=== PATIENT | male | born 1985 | race Caucasian/White ===

== ENCOUNTER 2024-06-19 15:02 | Emergency (ER) | payer BC, SELFPAY ==
[2024-06-19 15:18] VITALS: BP 144/89; PULSE 69; RESP 18; TEMP 36.6; O2SAT 98; BMI 25.1
--- NOTE | 2024-06-19 15:30 | ED.ABDPAIN ---
HPI - Abdominal Pain <Helena Lane PA-C - Last Filed: 06/19/24 20:28> General Chief Complaint: Abdominal Pain Stated Complaint: Abd px Time Seen by Provider: 06/19/24 15:29 Source: patient Mode of arrival: Ambulatory History of Present Illness HPI narrative: Mr. Holloway is a pleasant 39-year-old male with a past medical history of pyloric stenosis repair as an who presents to the emergency department for right lower quadrant abdominal pain x2 weeks. 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 Patient has had right lower quadrant abdominal pain for the last 2 weeks that is only present upon flexing his abdominal muscles such as going from a lying to sitting position. Pain is constant and 2/10 while doing this movement, there is no pain at rest. Patient was seen previously at a clinic on 06/14/2024 that did not have lab or imaging capabilities and was advised to go to the ER for CT scan. He was also evaluated by tele medicine provider on 06/15/[address] scan. Patient states this was the 1st day he was able to come to the ED. Reports that overall he feels well and is hoping it is just a pulled muscle. Normal, nonbloody bowel movements. Denies any fevers, chills, chest pain, shortness of breath, flu symptoms, dysuria, hematuria, flank pain, back pain, bulging, testicular pain, penile discharge, testicular swelling. Denies drug or tobacco use. Occasional alcohol. He has taken no medications prior to arrival. Related Data Allergies Allergy/AdvReac Type Severity Reaction Status Date / Time No Known Drug Allergies Allergy Verified 06/19/24 17:06 Review of Systems <Helena Lane PA-C - Last Filed: 06/19/24 20:28> Review of Systems ROS Unobtainable: All systems reviewed & are unremarkable except as noted in HPI and below Exam <Helena Lane PA-C - Last Filed: 06/19/24 20:28> Narrative Exam Narrative: GENERAL: 39 year old patient appears stated age. Well-developed patient, in no acute distress. HEAD: Atraumatic. Normocephalic. NECK: Trachea midline. Cervical ROM intact. CARDIOVASCULAR: Regular rate and rhythm. RESPIRATORY: ?Nonlabored respirations. ?Speaking in clear, full sentences. ?Clear to auscultation. Breath sounds equal bilaterally. No wheezes, rales, or rhonchi. ? GASTROINTESTINAL: Abdomen soft, nondistended, normal bowel sounds. Previous mid abdomen surgical scar. Mild tenderness to palpation of right lower quadrant with no rebound or guarding. EXTREMITIES: No edema or joint tenderness. BACK: Nontender without deformity or crepitance. No flank tenderness. NEURO: AOx3. ?Clear speech. ?Moves all 4 extremities appropriately. SKIN: No rash or erythema of visible areas Initial Vital Signs Initial Vital Signs: Vital Signs Temperature 97.9 F 06/19/24 15:18 Pulse Rate 69 06/19/24 15:18 Respiratory Rate 18 06/19/24 15:18 Blood Pressure 144/89 H 06/19/24 15:18 Pulse Oximetry 98 06/19/24 15:18 Oxygen Delivery Method Room Air 06/19/24 15:18 <Apoorva Mo MD - Last Filed: 06/21/24 07:19> Initial Vital Signs Initial Vital Signs: Vital Signs Temperature 97.9 F 06/19/24 15:18 Pulse Rate 69 06/19/24 15:18 Respiratory Rate 18 06/19/24 15:18 Blood Pressure 144/89 H 06/19/24 15:18 Pulse Oximetry 98 06/19/24 15:18 Oxygen Delivery Method Room Air 06/19/24 15:18 Course <Helena Lane PA-C - Last Filed: 06/19/24 20:28> Orders Ordered: ED Orders 06/19/24 15:42 CT abdomen pelvis w con Stat 06/19/24 15:59 Complete Blood Count AUTO DIFF Stat Comprehensive Metabolic Panel Stat Vital Signs Vital signs: Vital Signs - 8 hr 06/19/24 15:18 06/19/24 17:06 06/19/24 19:07 Temperature 97.9 F Pulse Rate 69 82 88 Respiratory Rate 18 16 Blood Pressure 144/89 H 136/87 138/88 Pulse Oximetry 98 99 100 Oxygen Delivery Method Room Air Room Air Room Air 06/19/24 20:04 Temperature Pulse Rate 77 Respiratory Rate 18 Blood Pressure 137/96 H Pulse Oximetry 100 Oxygen Delivery Method Room Air <Apoorva Mo MD - Last Filed: 06/21/24 07:19> Orders Ordered: ED Orders 06/19/24 15:42 CT abdomen pelvis w con Stat 06/19/24 15:59 Complete Blood Count AUTO DIFF Stat Comprehensive Metabolic Panel Stat Vital Signs Vital signs: Vital Signs - 8 hr 06/19/24 15:18 06/19/24 17:06 06/19/24 19:07 Temperature 97.9 F Pulse Rate 69 82 88 Respiratory Rate 18 16 Blood Pressure 144/89 H 136/87 138/88 Pulse Oximetry 98 99 100 Oxygen Delivery Method Room Air Room Air Room Air 06/19/24 20:04 Temperature Pulse Rate 77 Respiratory Rate 18 Blood Pressure 137/96 H Pulse Oximetry 100 Oxygen Delivery Method Room Air MDM - Abdominal Pain <Helena Lane PA-C - Last Filed: 06/19/24 20:28> Medical Records Attestation: I reviewed the patient's medical records. Medical records narrative: Patient brought in paperwork from clinic and telemedicine visits which I reviewed. Lab Data 06/19/24 15:59 06/19/24 15:59 Labs: Lab Results 06/19/24 Range/Units 15:59 WBC 5.8 (4.5-11.0) X10^3/uL RBC 4.73 (4.5-5.9) X10^6/uL Hgb 13.9 (13.5-17.5) g/dL Hct 40.8 L (41-53) % MCV 86.2 (80-100) fL MCH 29.5 (26-34) PG MCHC 34.2 (30-36) % RDW 12.6 (11.6-14.8) % Plt Count 273 (150-400) X10^3/uL Neut % (Auto) 53.2 (50-75) % Lymph % (Auto) 36.2 (25-40) % [place] % (Auto) 8.6 (3-14) % Eos % (Auto) 1.4 L (2-4) % Baso % (Auto) 0.6 (0-2) % Neut # (Auto) 3100 (5328-5304) /uL Lymph # (Auto) 2100 (2588-3971) /uL [place] # (Auto) 500 (0-900) /uL Eos # (Auto) 100 (0-450) /uL Baso # (Auto) 0 (0-100) /uL Sodium 137 (137-145) mmol/L Potassium 3.9 (3.4-5.1) mmol/L Chloride 102 (98-107) mmol/L Carbon Dioxide 29 (22-32) mmol/L BUN 21 H (9-20) mg/dL Creatinine 1.08 (0.66-1.25) mg/dL Estimated GFR > 60 (>60) mL/min BUN/Creatinine Ratio 19.4 (6-22) Glucose 89 (70-100) mg/dL Calcium 8.9 (8.4-10.2) mg/dL Total Bilirubin 0.5 (0.2-1.3) mg/dL AST 41 (17-59) IU/L ALT 28 (<50) IU/L Alkaline Phosphatase 50 (38-126) U/L Total Protein 7.5 (6.3-8.2) g/dL Albumin 4.6 (3.5-5.0) g/dL Globulin 2.9 (1.7-4.1) g/dL Albumin/Globulin Ratio 1.6 (1.0-2.8) Point of care testing: Urine Dip Bedside Urine Glucose Negative Bedside Urine Bilirubin - Negative Bedside Urine Ketone - Negative Urine Specific [place] 1.015 Bedside Urine Occult Blood - Negative Bedside Urine pH 6.0 Bedside Urine Protein - Negative Bedside Urine Urobilinogen - Negative Bedside Urine Nitrite - Negative Bedside Urine Leukocytes - Negative Esterase Imaging Data CT scan - abdomen/pelvis: Radiologist's Impression: PROCEDURE: CT ABDOMEN PELVIS W CON INDICATIONS: RLQ abd pain x 2 weeks, worse with flexing abdomen TECHNIQUE: After the administration of intravenous contrast, axial sections acquired from the lung bases to the pubic symphysis. Coronal and sagittal reformats were performed. For radiation dose reduction, the following was used: automated exposure control, adjustment of mA and/or kV according to patient size. COMPARISON: None. FINDINGS: Image quality: Diagnostic. Peritoneum: No pneumoperitoneum or ascites. Bones: No acute osseous abnormality. Lower Chest: No acute abnormality. Liver: Normal in size and contour. Likely 1.4 cm hemangioma in the right hepatic lobe (07/30). Gallbladder: No stones or pericholecystic fluid. Biliary tree: No intrahepatic or extrahepatic biliary ductal dilatation. Pancreas: Within normal limits. Spleen: Normal in size and contour. Kidneys: No hydronephrosis or obstructive urolithiasis. Adrenals: No adrenal nodularity. Bladder: Normal in size and wall thickness. : No acute abnormality. Stomach: Normal in size and contour. Bowel: Normal in diameter without any bowel obstruction. Normal retrocecal appendix terminating in the right upper quadrant (; ). Lymph Nodes: No retroperitoneal, mesenteric, or inguinal lymphadenopathy. Vascular: No abdominal aortic aneurysm. The visualized arterial vasculature is patent. Soft Tissues: No significant inguinal hernias. IMPRESSION: No acute CT abnormality of the abdomen/pelvis. MDM Narrative Medical decision making narrative: 39-year-old male with a past medical history of pyloric stenosis repair as an who presents to the emergency department for right lower quadrant abdominal pain x2 weeks. Differential diagnosis includes but is not limited to appendicitis, hernia, UTI, nephrolithiasis, muscle strain, etc. On exam the patient is in no acute distress, nontoxic appearing, vital signs appropriate. He has been having right lower quadrant abdominal pain with flexing of the abdominal muscles for 2 weeks. He was previously evaluated at a clinic and by telemedicine provider who recommended CT scan to rule out appendicitis. He has having no other associated symptoms. We will obtain CBC, CMP, UA, CT abdomen and pelvis. Labs reveal WBC count 5.8. Hemoglobin 13.9, hematocrit 40.8. Sodium 137, potassium 3.9, BUN 21, creatinine 1.08. Glucose 89. LFTs all within normal limits. Point of care UA negative. CT abdomen and pelvis reveals: No acute CT abnormality of the abdomen/pelvis. Results were printed and discussed with the patient including incidental finding of hemangioma. Patient's symptoms most likely result of abdominal wall muscle strain. Appropriate paperwork filled out for patient's job. He feels very reassured, declines need for any pain medication. I did recommend ibuprofen/Tylenol if needed. Recommended rest and avoiding heavy lifting for at least the next week. Discussed ER return precautions and follow up with PCP. Patient verbalized understanding of all information, is agreeable to the plan, is stable for discharge. <Apoorva Mo MD - Last Filed: 06/21/24 07:19> Lab Data Labs: Lab Results 06/19/24 Range/Units 15:59 WBC 5.8 (4.5-11.0) X10^3/uL RBC 4.73 (4.5-5.9) X10^6/uL Hgb 13.9 (13.5-17.5) g/dL Hct 40.8 L (41-53) % MCV 86.2 (80-100) fL MCH 29.5 (26-34) PG MCHC 34.2 (30-36) % RDW 12.6 (11.6-14.8) % Plt Count 273 (150-400) X10^3/uL Neut % (Auto) 53.2 (50-75) % Lymph % (Auto) 36.2 (25-40) % [place] % (Auto) 8.6 (3-14) % Eos % (Auto) 1.4 L (2-4) % Baso % (Auto) 0.6 (0-2) % Neut # (Auto) 3100 (9685-3792) /uL Lymph # (Auto) 2100 (5317-3423) /uL [place] # (Auto) 500 (0-900) /uL Eos # (Auto) 100 (0-450) /uL Baso # (Auto) 0 (0-100) /uL Sodium 137 (137-145) mmol/L Potassium 3.9 (3.4-5.1) mmol/L Chloride 102 (98-107) mmol/L Carbon Dioxide 29 (22-32) mmol/L BUN 21 H (9-20) mg/dL Creatinine 1.08 (0.66-1.25) mg/dL Estimated GFR > 60 (>60) mL/min BUN/Creatinine Ratio 19.4 (6-22) Glucose 89 (70-100) mg/dL Calcium 8.9 (8.4-10.2) mg/dL Total Bilirubin 0.5 (0.2-1.3) mg/dL AST 41 (17-59) IU/L ALT 28 (<50) IU/L Alkaline Phosphatase 50 (38-126) U/L Total Protein 7.5 (6.3-8.2) g/dL Albumin 4.6 (3.5-5.0) g/dL Globulin 2.9 (1.7-4.1) g/dL Albumin/Globulin Ratio 1.6 (1.0-2.8) Point of care testing: Urine Dip Bedside Urine Glucose Negative Bedside Urine Bilirubin - Negative Bedside Urine Ketone - Negative Urine Specific [place] 1.015 Bedside Urine Occult Blood - Negative Bedside Urine pH 6.0 Bedside Urine Protein - Negative Bedside Urine Urobilinogen - Negative Bedside Urine Nitrite - Negative Bedside Urine Leukocytes - Negative Esterase Discharge Plan Departure Patient Disposition: Home Clinical Impression: Strain of abdominal muscle Qualifiers: Encounter type: initial encounter Qualified Code(s): S39.011A - Strain of muscle, fascia and tendon of abdomen, initial encounter Instructions: DI for Abdominal Muscle Strain Activity Restrictions/Additional Instructions: Today we completed lab work and a CT scan of your abdomen. Your blood work was reassuring and your imaging showed no acute abnormalities. Your pain is likely related to a strain of the abdominal wall muscles. Please rest, use ibuprofen/Tylenol if needed for pain, and follow up with your primary care doctor. Please take Ibuprofen (Motrin/Advil) or Acetaminophen (Tylenol) for pain. These are available over the counter. You may take Ibuprofen 600 mg every 8 hours with food for pain. You may also take Acetaminophen 650 mg every 4-6 hours for pain. Do not exceed 3000 mg of Tylenol a day as this can cause liver damage. Do not drink alcohol with either of these medications. Please follow up with your primary care doctor within the next 2-3 days for ER follow-up. (If you do not have a PCP you can call [phone]. ?to schedule an appointment with an [facility] Primary Care Provider) IF YOU DEVELOP ANY NEW OR WORSENING SYMPTOMS, RETURN TO THE ER! Please read the attached instructions, they highlight more specific treatments and interventions for you at home. Thank you for letting me participate in your care, Helena Lane PA-C Referrals: Miscellaneous,DoctorMD [Primary Care Provider] - Stand Alone Forms: Patient Portal/API/Survey, Work Release Note ED Sign-out <Apoorva Mo MD - Last Filed: 06/21/24 07:19> Cosign ED Attending Cosignature Attestation: I was immediately available in the department for consultation throughout this patient's visit. Apoorva Mo MD
--- NOTE | 2024-06-19 15:42 | DI.CT.S_ITS ---
PROCEDURE: CT ABDOMEN PELVIS W CON INDICATIONS: RLQ abd pain x 2 weeks, worse with flexing abdomen TECHNIQUE: After the administration of intravenous contrast, axial sections acquired from the lung bases to the pubic symphysis. Coronal and sagittal reformats were performed. For radiation dose reduction, the following was used: automated exposure control, adjustment of mA and/or kV according to patient size. COMPARISON: None. FINDINGS: Image quality: Diagnostic. Peritoneum: No pneumoperitoneum or ascites. Bones: No acute osseous abnormality. Lower Chest: No acute abnormality. Liver: Normal in size and contour. Likely 1.4 cm hemangioma in the right hepatic lobe (2/25). Gallbladder: No stones or pericholecystic fluid. Biliary tree: No intrahepatic or extrahepatic biliary ductal dilatation. Pancreas: Within normal limits. Spleen: Normal in size and contour. Kidneys: No hydronephrosis or obstructive urolithiasis. Adrenals: No adrenal nodularity. Bladder: Normal in size and wall thickness. : No acute abnormality. Stomach: Normal in size and contour. Bowel: Normal in diameter without any bowel obstruction. Normal retrocecal appendix terminating in the right upper quadrant (2/66; 4/54). Lymph Nodes: No retroperitoneal, mesenteric, or inguinal lymphadenopathy. Vascular: No abdominal aortic aneurysm. The visualized arterial vasculature is patent. Soft Tissues: No significant inguinal hernias. IMPRESSION: No acute CT abnormality of the abdomen/pelvis. Dictated by: Tho Coto M.D. on 06/19/2024 at 19:00 Approved by: Tho Coto M.D. on 06/19/2024 at 19:02
[2024-06-19 16:10] LABS: Add Manual Diff / Slide Review NO; Basophils Absolute Auto 0 /uL (0-100); Basophils Percent Auto 0.6 % (0-2); Eosinophils Absolute Auto 100 /uL (0-450); Eosinophils Percent Auto 1.4 % (2-4); Hematocrit 40.8 % (41-53); Hemoglobin 13.9 g/dL (13.5-17.5); Lymphocytes Absolute Auto 2100 /uL (1100-4500); Lymphocytes Percent Auto 36.2 % (25-40); Mean Corpuscular HGB Conc 34.2 % (30-36); Mean Corpuscular Hemoglobin 29.5 PG (26-34); Mean Corpuscular Volume 86.2 fL (80-100); Monocytes Absolute Auto 500 /uL (0-900); Monocytes Percent Auto 8.6 % (3-14); Neutrophils Absolute Auto 3100 /uL (1500-7000); Neutrophils Percent Auto 53.2 % (50-75); Platelet Count 273 X10^3/uL (150-400); Red Blood Cell Count 4.73 X10^6/uL (4.5-5.9); Red Cell Distribution Width 12.6 % (11.6-14.8); White Blood Cell Count 5.8 X10^3/uL (4.5-11.0)
[2024-06-19 16:24] LABS: Alanine Aminotransferase 28 IU/L (<50); Albumin 4.6 g/dL (3.5-5.0); Albumin Globulin Ratio 1.6 (1.0-2.8); Alkaline Phosphatase 50 U/L (38-126); Aspartate Aminotransferase 41 IU/L (17-59); BUN Creatinine Ratio 19.4 (6-22); Bilirubin Total 0.5 mg/dL (0.2-1.3); Blood Urea Nitrogen 21 mg/dL (9-20); Calcium 8.9 mg/dL (8.4-10.2); Carbon Dioxide 29 mmol/L (22-32); Chloride 102 mmol/L (98-107); Estimated Glomerular Filt Rate > 60 mL/min (>60); Globulin 2.9 g/dL (1.7-4.1); Glucose 89 mg/dL (70-100); HEMOLYSIS 25 (0-50); Potassium 3.9 mmol/L (3.4-5.1); Sodium 137 mmol/L (137-145); Total Protein 7.5 g/dL (6.3-8.2)
[2024-06-19 17:06] VITALS: BP 136/87; PULSE 82; RESP 16; O2SAT 99
[2024-06-19 19:07] VITALS: BP 138/88; PULSE 88; O2SAT 100
[2024-06-19 20:04] VITALS: BP 137/96; PULSE 77; RESP 18; O2SAT 100
== END 2024-06-19 20:06 | disposition home or self-care (01) ==
PROVIDERS: Emergency Provider Physician Assistant
DX: S39.011A Strain of muscle, fascia and tendon of abdomen, initial encounter (principal)
CPT/HCPCS: 36415; 74177; 80053; 81003; 85025; 99283; 99284; Q9967